=== PATIENT | female | born 1945 | race Caucasian/White ===

== ENCOUNTER → 2017-01-01 | Outpatient (CLI) | payer MEDICARE, BC ==
[~2017-01-01] MED LIST: ADVAIR DISKUS 11 DSK IH; ATROVENTNS0.03% NS; BUPROPION HCL150 M2 PO; CALCIUM600 M1 PO; CEFTIN500 MG PO; CENTRUM SILVER1 TA1 PO; COMBIRESP IH; COMBIVENT INH14.7 GM IH; DARVOCET N; DESYREL 50MG50 MG PO; DIOVAN 160MG160 MG PO; EPA FISH OIL1000 MG PO; FLEXERIL 1010 MG/TAB PO; GLUCOPHAGE1000 MG PO; GLUCOTROL XL10 MG PO; LABETALOL; LABETALOL200 MG PO; LEVOTHROID0.1 MG PO; LEVOTHYROXIN0.175 MG PO; LINSEED OIL 1 ML1 ML; LOPRESSOR 550 MG/TAB PO; LUTEIN20 M1; MOTRIN 200200 MG/TAB PO; MOVE FREE; MULTI VITAMINS1 TAB PO; NEURONTIN100 MG/CAP PO; NEURONTIN300 MG/CAP PO; NORCO 325 MG-51 TAB PO; NORCO 325 MG-7.1 TAB PO; OMEGA-3 FISH1000 MG PO; PROAIR HFA0.09 MG/AC IH; PROBIOTIC-MAJOR PO; PROVENTIL0.09 MG/A1 IH; REQUIP 1MG T1 MG/TAB PO; REQUIP1 MG PO; ROXICODONE 55 MG/TAB PO; TIROSINT125 MC1 PO; ULTRAM 50MG TAB50 MG PO; VICODIN 5/5001 UDTAB PO; VITAMIN C500 MG PO; VITAMIN D2000 I1 PO; WELLBUTRIN SR150 M1 PO; ZANAFLEX 4MG TAB4 MG PO
== END ==
LOC: MC.RAD 10:42
DX: Z12.31 Encounter for screening mammogram for malignant neoplasm of breast (principal)

== ENCOUNTER → 2017-08-30 | Outpatient (CLI) | payer MEDICARE, BC | LOC: COL.RAD 07:48 | DX: R11.0 Nausea (principal) | CPT/HCPCS: A9541 ==

== ENCOUNTER → 2018-02-22 | Outpatient (CLI) | payer MEDICARE, BC | LOC: MC.RAD 07:48 | DX: Z12.31 Encounter for screening mammogram for malignant neoplasm of breast (principal) ==

== ENCOUNTER 2018-03-28 12:01 | Emergency (ER) | payer MEDICARE, BC ==
[~2018-03-28] VITALS: Ht 154.9 cm; Wt 94.5 kg
[2018-03-28 12:03] VITALS: TEMP 97.2
[2018-03-28] MEDS ORDERED: PHENERGAN W/CO120 M1 PO (12:25)
[2018-03-28] MEDS ORDERED: ZOFRAN ODT4 MG PO (12:26)
[2018-03-28] MEDS ORDERED: PRILOSEC 20MG20 MG PO (12:27)
[2018-03-28] MEDS ORDERED: NYSTATIN POWDER30 GM TOP (12:27)
[2018-03-28] MEDS ORDERED: ASTELIN NASAL S34 ML NS (12:30)
[2018-03-28 12:33] LABS: BASO # 0.1 (0.0-0.2); BASO % 0.7 % (0.0-2.0); EOS # 0.2 (0.0-0.7); EOS % 3.3 % (0-4.0); GRAN # 4.3 (1.4-6.5); GRAN % 61.7 % (42.2-75.2); HEMATOCRIT 39.6 % (37.0-47.0); HEMOGLOBIN 13.4 g/dl (12.5-16.0); LYMPH # 1.7 (1.2-3.4); LYMPH % 24.5 % (20.0-51.0); MEAN CELL VOLUME 95 fl (80.0-100.0); MEAN CORPUSCULAR HEMOGLOBIN 32 pg (27.0-31.0); MEAN CORPUSCULAR HGB CONC 34 g/dl (33.0-37.0); MEAN PLATELET VOLUME 10.8 fl (7.4-10.4); MONO # 0.7 (0.1-0.6); MONO % 9.5 % (1.7-9.3); PLATELET COUNT 176 K/mm3 (130-400); RED BLOOD COUNT 4.17 M/mm3 (4.10-5.30); REDCELL DISTRIBUTION WIDTH-CV 13.2 % (11.5-14.5)
[2018-03-28 12:43] LABS: PROTHROMBIN TIME 11.4 SECONDS (9.7-12.8)
[2018-03-28 12:46] LABS: ALANINE AMINOTRANSFERASE 35 U/L (9-52); ALBUMIN 3.9 gm/dL (3.5-5.0); ALKALINE PHOSPHATASE 62 U/L (50-136); ANION GAP 12 mmol/L (7-16); AST,SGOT 38 U/L (15-37); BILIRUBIN,TOTAL 0.6 mg/dL (0.0-1.0); BLOOD UREA NITROGEN 15 mg/dL (7-17); CALCIUM 9.7 mg/dL (8.4-10.2); CARBON DIOXIDE 26 mmol/L (22-30); CHLORIDE 101 mmol/L (98-107); CREATININE, serum 0.81 mg/dL (0.52-1.25); GLUCOSE 83 mg/dL (74-106); POTASSIUM 4.8 mmol/L (3.4-5.0); SODIUM 138 mmol/L (137-145); TOTAL PROTEIN 7.4 gm/dL (6.4-8.2)
[2018-03-28 12:55] LABS: C-REACTIVE PROTEIN < 0.5 mg/dL (0.0-0.9)
[2018-03-28 13:01] LABS: TROPONIN-I < 0.012 ng/mL (0.000-0.034)
[2018-03-28 15:15] VITALS: BP 128/59; PULSE 70
== END 2018-03-28 15:47 | disposition home or self-care (01) ==
LOC: COL.ER 12:01
PROVIDERS: Emergency Medicine
DX: K21.9 Gastro-esophageal reflux disease without esophagitis (principal); I10 Essential (primary) hypertension; E11.9 Type 2 diabetes mellitus without complications; J44.9 Chronic obstructive pulmonary disease, unspecified; Z87.11 Personal history of peptic ulcer disease; Z90.49 Acquired absence of other specified parts of digestive tract; Z98.890 Other specified postprocedural states; Z87.891 Personal history of nicotine dependence; Z79.84 Long term (current) use of oral hypoglycemic drugs
CPT/HCPCS: J2765

== ENCOUNTER 2018-05-23 15:12 | Emergency (ER) | payer MEDICARE, BC ==
[~2018-05-23] VITALS: Ht 154.9 cm; Wt 94.1 kg
[~2018-05-23 15:12] MED LIST changes: +ASTELIN NASAL S34 ML NS; +NYSTATIN POWDER30 GM TOP; +PHENERGAN W/CO120 M1 PO; +PRILOSEC 20MG20 MG PO; +ZOFRAN ODT4 MG PO
[2018-05-23 15:14] VITALS: BP 180/82; TEMP 97.6
[2018-05-23 16:58] VITALS: PULSE 86
== END 2018-05-23 16:59 | disposition home or self-care (01) ==
LOC: COL.ER 15:12
DX: S52.502A Unspecified fracture of the lower end of left radius, initial encounter for closed fracture (principal); E03.9 Hypothyroidism, unspecified; E11.9 Type 2 diabetes mellitus without complications; I10 Essential (primary) hypertension; Z90.49 Acquired absence of other specified parts of digestive tract; Z98.890 Other specified postprocedural states; Z98.51 Tubal ligation status; Z87.891 Personal history of nicotine dependence; W01.0XXA Fall on same level from slipping, tripping and stumbling without subsequent striking against object, initial encounter; Y92.009 Unspecified place in unspecified non-institutional (private) residence as the place of occurrence of the external cause
CPT/HCPCS: Q4050

== ENCOUNTER → 2019-04-04 | Outpatient (CLI) | payer MEDICARE, BC | LOC: MC.RAD 09:45 | DX: Z12.31 Encounter for screening mammogram for malignant neoplasm of breast (principal); E11.9 Type 2 diabetes mellitus without complications ==

== ENCOUNTER 2019-05-15 14:25 | Emergency (ER) | payer MEDICARE, BC ==
[~2019-05-15] VITALS: Ht 154.9 cm; Wt 95.5 kg
[2019-05-15 14:30] VITALS: TEMP 97.5
[2019-05-15 16:00] LABS: BASO % 0.5 % (0.0-2.0); EOS # 0.3 (0.0-0.7); EOS % 3.7 % (0-4.0); GRAN # 5.3 (1.4-6.5); GRAN % 69.4 % (42.2-75.2); HEMATOCRIT 40.3 % (37.0-47.0); LYMPH # 1.5 (1.2-3.4); LYMPH % 19.7 % (20.0-51.0); MEAN CELL VOLUME 100 fl (80.0-100.0); MEAN CORPUSCULAR HEMOGLOBIN 32 pg (27.0-31.0); MEAN CORPUSCULAR HGB CONC 32 g/dl (33.0-37.0); MEAN PLATELET VOLUME 11.1 fl (7.4-10.4); MONO # 0.5 (0.1-0.6); MONO % 6.4 % (1.7-9.3); PLATELET COUNT 173 K/mm3 (130-400); RED BLOOD COUNT 4.05 M/mm3 (4.10-5.30); REDCELL DISTRIBUTION WIDTH-CV 13.2 % (11.5-14.5)
[2019-05-15 16:12] LABS: BILIRUBIN,TOTAL 0.5 mg/dL (0.0-1.0); C-REACTIVE PROTEIN 0.6 mg/dL (0.0-0.9); CALCIUM 9.6 mg/dL (8.4-10.2); POTASSIUM 4.7 mmol/L (3.4-5.0); TOTAL PROTEIN 7.5 gm/dL (6.4-8.2)
[2019-05-15] MEDS ORDERED: NORVASC 5MG5 MG/TAB PO (18:13)
[2019-05-15 19:06] VITALS: BP 134/72; PULSE 88
== END 2019-05-15 19:06 | disposition home or self-care (01) ==
LOC: COL.ER 14:25
PROVIDERS: Emergency Medicine
DX: T50.905A Adverse effect of unspecified drugs, medicaments and biological substances, initial encounter (principal); R05 Cough; I10 Essential (primary) hypertension; E11.9 Type 2 diabetes mellitus without complications; J44.9 Chronic obstructive pulmonary disease, unspecified; F17.210 Nicotine dependence, cigarettes, uncomplicated; Z98.51 Tubal ligation status; Z90.49 Acquired absence of other specified parts of digestive tract; K21.9 Gastro-esophageal reflux disease without esophagitis; Z79.84 Long term (current) use of oral hypoglycemic drugs
CPT/HCPCS: J1200; J2930; J7030; Q9967

== ENCOUNTER → 2019-07-21 | Outpatient (CLI) | payer MEDICARE, BC ==
[~2019-07-21] MED LIST changes: +NORVASC 5MG5 MG/TAB PO
== END ==
LOC: COL.RAD 07-09 09:45
DX: M48.07 Spinal stenosis, lumbosacral region (principal); M48.04 Spinal stenosis, thoracic region; M51.36 Other intervertebral disc degeneration, lumbar region

== ENCOUNTER 2019-07-25 09:21 | Emergency (ER) | payer MEDICARE, BC ==
[~2019-07-25] VITALS: Ht 154.9 cm; Wt 94.5 kg
[2019-07-25 09:45] VITALS: TEMP 97.5
[2019-07-25 10:34] LABS: ALANINE AMINOTRANSFERASE 44 U/L (9-52); ALBUMIN 4.7 gm/dL (3.5-5.0); ALKALINE PHOSPHATASE 52 U/L (50-136); ANION GAP 8 mmol/L (7-16); AST,SGOT 49 U/L (15-37); BILIRUBIN,TOTAL 0.7 mg/dL (0.0-1.0); BLOOD UREA NITROGEN 18 mg/dL (7-17); CALCIUM 9.8 mg/dL (8.4-10.2); CARBON DIOXIDE 30 mmol/L (22-30); CHLORIDE 102 mmol/L (98-107); CREATININE, serum 0.84 (0.52-1.25); GLUCOSE 127 mg/dL (74-106); LIPASE 67 U/L (23-300); SODIUM 140 mmol/L (137-145); TOTAL PROTEIN 8.3 gm/dL (6.4-8.2)
[2019-07-25 10:35] LABS: BASO % 0.8 % (0.0-2.0); EOS # 0.1 (0.0-0.7); EOS % 2.6 % (0-4.0); GRAN # 3.7 (1.4-6.5); GRAN % 72.4 % (42.2-75.2); HEMATOCRIT 41.6 % (37.0-47.0); HEMOGLOBIN 13.8 g/dl (12.5-16.0); LYMPH # 0.8 (1.2-3.4); LYMPH % 16.7 % (20.0-51.0); MEAN CELL VOLUME 97 fl (80.0-100.0); MEAN CORPUSCULAR HEMOGLOBIN 32 pg (27.0-31.0); MEAN CORPUSCULAR HGB CONC 33 g/dl (33.0-37.0); MEAN PLATELET VOLUME 11.7 fl (7.4-10.4); MONO # 0.4 (0.1-0.6); MONO % 7.1 % (1.7-9.3); PLATELET COUNT 138 K/mm3 (130-400); RED BLOOD COUNT 4.28 M/mm3 (4.10-5.30); REDCELL DISTRIBUTION WIDTH-CV 13.1 % (11.5-14.5)
[2019-07-25 10:37] LABS: C-REACTIVE PROTEIN < 0.5 mg/dL (0.0-0.9)
[2019-07-25] MEDS ORDERED: BONINE25 MG PO (12:05)
[2019-07-25 12:10] LABS: COLLECTION METHOD CLEAN CATCH
[2019-07-25 12:15] LABS: PH 7 (5-8); SQUAMOUS EPITHELIAL 0-2 /hpf; URINE APPEARANCE Clear; URINE BACTERIA None Seen /hpf; URINE BILIRUBIN Negative (NEGATIVE); URINE BLOOD Negative (NEGATIVE); URINE COLOR Yellow; URINE GLUCOSE Negative (NEGATIVE); URINE KETONE Negative (NEGATIVE); URINE LEUKOCYTE ESTERASE Trace (NEGATIVE); URINE NITRATE Negative (NEGATIVE); URINE PROTEIN(semi-quant) Negative (NEGATIVE); URINE RBC 0-2 /hpf
[2019-07-25 12:46] VITALS: BP 147/78; PULSE 78
== END 2019-07-25 12:55 | disposition home or self-care (01) ==
LOC: COL.ER 09:21
PROVIDERS: Family Medicine
DX: H83.01 Labyrinthitis, right ear (principal); E11.9 Type 2 diabetes mellitus without complications; I10 Essential (primary) hypertension
CPT/HCPCS: J2405; J7030; J7040

== ENCOUNTER 2019-09-16 06:58 | Day surgery (SDC) | payer MEDICARE, BC ==
[~2019-09-16] VITALS: Ht 154.9 cm; Wt 97.4 kg
[~2019-09-16 06:58] MED LIST changes: +BONINE25 MG PO
[2019-09-16] MEDS ORDERED: WELLBUTRIN SR150 M1 PO (07:48)
[2019-09-16] MEDS ORDERED: MEGA MULTIVITAM1 TAB PO (07:53)
[2019-09-16] MEDS ORDERED: MULTIPLE VITAMI1 CAP PO (07:55)
[2019-09-16] MEDS ORDERED: LUTEIN20 M1 PO (07:56)
[2019-09-16] MEDS ORDERED: ASPIRIN 81M81 MG/TA2 PO (07:57)
[2019-09-16 08:55] VITALS: BP 135/70; PULSE 70; TEMP 97
--- NOTE | 2019-09-16 08:55 | NUR ---
Pt to [facility] [address] Pt drowsy, but awake. Pt ambulates to recliner with stand by assitance x2. Family in room. Pt denies pain or nausea. Muffin, coffee, and juice provided. Will continue to monitor. Call light within reach.
[2019-09-16 09:09] VITALS: BP 143/90; PULSE 64; TEMP 96.4
[2019-09-16 09:10] VITALS: BP 117/79; PULSE 71
--- NOTE | 2019-09-16 09:10 | NUR ---
Pt tolerating food and fluids without difficulties. Denies needs. Call light within reach.
[2019-09-16 09:25] VITALS: BP 135/78; PULSE 68
--- NOTE | 2019-09-16 09:25 | NUR ---
into see pt and family. Call light within reach.
--- NOTE | 2019-09-16 09:40 | NUR ---
Discharge instructions reviewed. Pt voices understanding. IV site discontinued with all parts intact. Pt up to dress. Call light within reach.
--- NOTE | 2019-09-16 09:50 | NUR ---
Pt escorted to private car via wheel chair. Pt accompanied home by her and son.
== END 2019-09-16 09:50 | disposition home or self-care (01) ==
LOC: SDCO 06:58
DX: K29.30 Chronic superficial gastritis without bleeding (principal); K31.89 Other diseases of stomach and duodenum; E03.9 Hypothyroidism, unspecified; G25.81 Restless legs syndrome; I10 Essential (primary) hypertension; E11.9 Type 2 diabetes mellitus without complications; G89.29 Other chronic pain; M54.5 Low back pain; E66.9 Obesity, unspecified; K58.8 Other irritable bowel syndrome; I25.10 Atherosclerotic heart disease of native coronary artery without angina pectoris; I35.8 Other nonrheumatic aortic valve disorders; J44.9 Chronic obstructive pulmonary disease, unspecified; G47.33 Obstructive sleep apnea (adult) (pediatric); K21.9 Gastro-esophageal reflux disease without esophagitis; M19.90 Unspecified osteoarthritis, unspecified site; F32.9 Major depressive disorder, single episode, unspecified; F41.9 Anxiety disorder, unspecified; Z90.49 Acquired absence of other specified parts of digestive tract; Z79.84 Long term (current) use of oral hypoglycemic drugs; Z96.659 Presence of unspecified artificial knee joint; Z87.891 Personal history of nicotine dependence; Z86.718 Personal history of other venous thrombosis and embolism
CPT/HCPCS: J2704; J7030

== ENCOUNTER → 2020-05-13 | Outpatient (CLI) | payer MEDICARE, BC ==
[~2020-05-13] MED LIST changes: +ASPIRIN 81M81 MG/TA2 PO; +LUTEIN20 M1 PO; +MEGA MULTIVITAM1 TAB PO; +MULTIPLE VITAMI1 CAP PO
== END ==
LOC: MC.RAD 10:59
DX: Z12.31 Encounter for screening mammogram for malignant neoplasm of breast (principal)

== ENCOUNTER 2020-08-07 10:30 | Emergency (ER) | payer MEDICARE, BC ==
[~2020-08-07] VITALS: Ht 152.4 cm; Wt 90.0 kg
[2020-08-07 10:44] VITALS: TEMP 97.4
[2020-08-07 11:23] LABS: BASO % 0.5 % (0.0-2.0); EOS # 0.2 (0.0-0.7); EOS % 2.7 % (0-4.0); GRAN # 5.9 (1.4-6.5); GRAN % 71.3 % (42.2-75.2); HEMATOCRIT 38.4 % (37.0-47.0); HEMOGLOBIN 12.7 g/dl (12.5-16.0); LYMPH # 1.6 (1.2-3.4); LYMPH % 18.7 % (20.0-51.0); MEAN CELL VOLUME 94 fl (80.0-100.0); MEAN CORPUSCULAR HEMOGLOBIN 31 pg (27.0-31.0); MEAN CORPUSCULAR HGB CONC 33 g/dl (33.0-37.0); MEAN PLATELET VOLUME 12.5 fl (7.4-10.4); MONO # 0.5 (0.1-0.6); MONO % 6.4 % (1.7-9.3); PLATELET COUNT 158 K/mm3 (130-400); RED BLOOD COUNT 4.07 M/mm3 (4.10-5.30); REDCELL DISTRIBUTION WIDTH-CV 13.4 % (11.5-14.5)
[2020-08-07 11:41] LABS: ALANINE AMINOTRANSFERASE 25 U/L (4-34); ALBUMIN 4.4 gm/dL (3.5-5.0); ALKALINE PHOSPHATASE 61 U/L (50-136); ANION GAP 9 mmol/L (7-16); AST,SGOT 37 U/L (15-37); BILIRUBIN,TOTAL 0.7 mg/dL (0.0-1.0); BLOOD UREA NITROGEN 18 mg/dL (7-17); CALCIUM 9.6 mg/dL (8.4-10.2); CARBON DIOXIDE 27 mmol/L (22-30); CHLORIDE 105 mmol/L (98-107); GLUCOSE 171 mg/dL (74-106); LIPASE 104 U/L (23-300); POTASSIUM 3.9 mmol/L (3.4-5.0); SODIUM 141 mmol/L (137-145); TOTAL PROTEIN 7.7 gm/dL (6.4-8.2)
[2020-08-07 11:49] LABS: C-REACTIVE PROTEIN < 0.5 mg/dL (0.0-0.9); TROPONIN-I < 0.012 ng/mL (0.000-0.035)
[2020-08-07] MEDS ORDERED: ZOFRAN ODT8 MG PO (13:24)
[2020-08-07 13:30] LABS: COLLECTION METHOD CLEAN CATCH
[2020-08-07 13:39] LABS: PH 6 (5-8); SQUAMOUS EPITHELIAL 0-2 /hpf; URINE APPEARANCE Clear; URINE BACTERIA None Seen /hpf; URINE BILIRUBIN Negative (NEGATIVE); URINE BLOOD Negative (NEGATIVE); URINE COLOR Straw; URINE GLUCOSE Negative (NEGATIVE); URINE KETONE Negative (NEGATIVE); URINE LEUKOCYTE ESTERASE Negative (NEGATIVE); URINE NITRATE Negative (NEGATIVE); URINE PROTEIN(semi-quant) Negative (NEGATIVE); URINE RBC 0-2 /hpf; URINE UROBILINOGEN Negative (NEGATIVE)
[2020-08-07 14:16] VITALS: BP 100/64; PULSE 78
== END 2020-08-07 14:16 | disposition home or self-care (01) ==
LOC: COL.ER 10:30
PROVIDERS: Emergency Medicine
DX: R11.2 Nausea with vomiting, unspecified (principal); I10 Essential (primary) hypertension; E11.9 Type 2 diabetes mellitus without complications; E03.9 Hypothyroidism, unspecified; G89.29 Other chronic pain; Z90.49 Acquired absence of other specified parts of digestive tract; Z88.1 Allergy status to other antibiotic agents; Z79.890 Hormone replacement therapy; Z79.82 Long term (current) use of aspirin; Z79.84 Long term (current) use of oral hypoglycemic drugs
CPT/HCPCS: C9113; J2270; J2405; J2765; J7030

== ENCOUNTER → 2020-12-08 | Outpatient (CLI) | payer MEDICARE, BC ==
[~2020-12-08] MED LIST changes: +REGLAN 10MG10 MG/TAB PO; +ZOFRAN ODT8 MG PO
== END ==
LOC: COL.RAD 08:00
DX: R11.2 Nausea with vomiting, unspecified (principal)
CPT/HCPCS: A9541

== ENCOUNTER 2021-01-15 13:09 | Emergency (ER) | payer MEDICARE, BC ==
[~2021-01-15] VITALS: Ht 154.9 cm; Wt 82.3 kg
[2021-01-15 13:18] VITALS: TEMP 96.5
[2021-01-15 15:25] LABS: COLLECTION METHOD CLEAN CATCH
[2021-01-15 15:30] LABS: BASO # 0.1 (0.0-0.2); BASO % 0.7 % (0.0-2.0); EOS # 0.1 (0.0-0.7); EOS % 1.1 % (0-4.0); GRAN % 79.5 % (42.2-75.2); HEMATOCRIT 43.2 % (37.0-47.0); LYMPH % 13.7 % (20.0-51.0); MEAN CELL VOLUME 97 fl (80.0-100.0); MEAN CORPUSCULAR HEMOGLOBIN 32 pg (27.0-31.0); MEAN CORPUSCULAR HGB CONC 32 g/dl (33.0-37.0); MEAN PLATELET VOLUME 11.7 fl (7.4-10.4); MONO # 0.4 (0.1-0.6); MONO % 4.7 % (1.7-9.3); PLATELET COUNT 179 K/mm3 (130-400); RED BLOOD COUNT 4.45 M/mm3 (4.10-5.30); REDCELL DISTRIBUTION WIDTH-CV 12.8 % (11.5-14.5)
[2021-01-15 15:33] LABS: PH 5 (5-8); SQUAMOUS EPITHELIAL 0-2 /hpf; URINE APPEARANCE Clear; URINE BACTERIA None Seen /hpf; URINE BILIRUBIN Negative (NEGATIVE); URINE BLOOD Negative (NEGATIVE); URINE COLOR Yellow; URINE GLUCOSE Negative (NEGATIVE); URINE KETONE Negative (NEGATIVE); URINE LEUKOCYTE ESTERASE Negative (NEGATIVE); URINE NITRATE Negative (NEGATIVE); URINE PROTEIN(semi-quant) Negative (NEGATIVE); URINE RBC 0-2 /hpf; URINE UROBILINOGEN Negative (NEGATIVE); URINE WBC 0-2 /hpf
[2021-01-15 15:45] LABS: ALANINE AMINOTRANSFERASE 20 U/L (4-34); ALBUMIN 4.8 gm/dL (3.5-5.0); ALKALINE PHOSPHATASE 62 U/L (50-136); ANION GAP 10 mmol/L (7-16); AST,SGOT 34 U/L (15-37); BILIRUBIN,TOTAL 0.8 mg/dL (0.0-1.0); BLOOD UREA NITROGEN 22 mg/dL (7-17); CALCIUM 10.1 mg/dL (8.4-10.2); CARBON DIOXIDE 29 mmol/L (22-30); CHLORIDE 101 mmol/L (98-107); CREATININE, serum 0.88 (0.52-1.25); GLUCOSE 128 mg/dL (74-106); LIPASE 127 U/L (23-300); POTASSIUM 4.1 mmol/L (3.4-5.0); SODIUM 141 mmol/L (137-145); TOTAL PROTEIN 8.3 gm/dL (6.4-8.2)
[2021-01-15 15:57] LABS: TROPONIN-I < 0.012 ng/mL (0.000-0.035)
[2021-01-15 17:09] VITALS: BP 134/57; PULSE 87
== END 2021-01-15 17:12 | disposition home or self-care (01) ==
LOC: COL.ER 13:09
PROVIDERS: Emergency Medicine
DX: R11.2 Nausea with vomiting, unspecified (principal); E03.9 Hypothyroidism, unspecified; I10 Essential (primary) hypertension; E11.9 Type 2 diabetes mellitus without complications; I25.10 Atherosclerotic heart disease of native coronary artery without angina pectoris; Z88.1 Allergy status to other antibiotic agents; Z79.890 Hormone replacement therapy; Z79.84 Long term (current) use of oral hypoglycemic drugs; Z79.82 Long term (current) use of aspirin; Z90.49 Acquired absence of other specified parts of digestive tract

== ENCOUNTER → 2021-05-30 | Outpatient (CLI) | payer MEDICARE, BC | LOC: MC.RAD 08:00 | DX: R92.8 Other abnormal and inconclusive findings on diagnostic imaging of breast (principal) ==

== ENCOUNTER 2021-08-29 19:02 | Emergency (ER) | payer MEDICARE, BC ==
[~2021-08-29] VITALS: Ht 154.9 cm; Wt 86.4 kg
[2021-08-29 19:14] VITALS: TEMP 98.2
[2021-08-30 00:52] VITALS: BP 134/78; PULSE 77
== END 2021-08-30 00:52 | disposition home or self-care (01) ==
LOC: COL.ER 19:02
DX: S00.83XA Contusion of other part of head, initial encounter (principal); R11.2 Nausea with vomiting, unspecified; E03.9 Hypothyroidism, unspecified; I10 Essential (primary) hypertension; E11.9 Type 2 diabetes mellitus without complications; I25.10 Atherosclerotic heart disease of native coronary artery without angina pectoris; Z79.899 Other long term (current) drug therapy; Z79.84 Long term (current) use of oral hypoglycemic drugs; Z79.890 Hormone replacement therapy; Z79.82 Long term (current) use of aspirin; W18.09XA Striking against other object with subsequent fall, initial encounter; Y92.009 Unspecified place in unspecified non-institutional (private) residence as the place of occurrence of the external cause

== ENCOUNTER → 2021-12-01 | Outpatient (CLI) | payer MEDICARE, BC | LOC: MC.RAD 10:28 | DX: R92.8 Other abnormal and inconclusive findings on diagnostic imaging of breast (principal) ==

== ENCOUNTER → 2021-12-07 | Outpatient (CLI) | payer MEDICARE, BC | LOC: MC.RAD 07:00 | DX: N63.11 Unspecified lump in the right breast, upper outer quadrant (principal) ==

== ENCOUNTER 2022-01-05 06:31 | Day surgery (SDC) | payer MEDICARE, BC ==
[~2022-01-05] VITALS: Ht 154.9 cm; Wt 91.0 kg
[~2022-01-05 06:31] MED LIST changes: -MULTIPLE VITAMI1 CAP PO; +MULTIPLE VITAMI1 TA5 PO
[2022-01-05 07:25] VITALS: BP 148/74; PULSE 77; TEMP 98.4
--- NOTE | 2022-01-05 09:02 | NUR ---
Initial visit; Patient thanked [employer] Operator for offering prayer and God's blessings prior to her surgical procedure.
[2022-01-05 09:35] VITALS: BP 113/66; PULSE 77; TEMP 98.7
--- NOTE | 2022-01-05 09:35 | NUR ---
RECEIVED PT FROM OR. RECEIVED REPORT FROM [facility] [employer]. PT DENIES ANY PAIN OR DISCOMFORT AT THIS TIME. REORIENTED PT TO ROOM AND CALL LIGHT. VS OBTAINED. WILL CONTINUE TO MONITOR PT.
[2022-01-05] MEDS ORDERED: NORCO 325 MG-51 TAB PO (09:38)
[2022-01-05 09:50] VITALS: BP 99/78; PULSE 75
--- NOTE | 2022-01-05 09:50 | NUR ---
VSS. PT CONTINUES TO REST COMFORTABLY. DENIES ANY PAIN OR DISCOMFORT. WILL CONTINUE TO MONITOR PT.
[2022-01-05 10:05] VITALS: BP 124/58; PULSE 72
--- NOTE | 2022-01-05 10:05 | NUR ---
PT CONTINUES TO DENY ANY PAIN OR DISCOMFORT. VSS. PT TOLERATING HOT CHOCOLATE AND TOAST. WILL CONTINUE TO MONITOR PT.
[2022-01-05 10:20] VITALS: BP 121/65; PULSE 96
--- NOTE | 2022-01-05 10:20 | NUR ---
VSS. PT STATES SHE IS READY FOR DISCHARGE. CONTINUES TO DENY ANY PAIN OR DISCOMFORT. WILL PREPARE PT FOR DISCHARGE.
--- NOTE | 2022-01-05 10:25 | NUR ---
IV DC. PT TOLERATED WELL.
--- NOTE | 2022-01-05 10:30 | NUR ---
DISCHARGE EDUCATION COMPLETED WITH PT. PT VERBALIZED UNDERSTANDING OF HOME AND FOLLOW UP CARE. ALL QUESTIONS ANSWERED. DISCHARGE PAPERWORK GIVEN TO PT.
--- NOTE | 2022-01-05 10:40 | NUR ---
PT OFF UNIT PER WC AND DISCHARGE HOME PER PERSONAL VEHICLE WITH .
== END 2022-01-05 10:40 | disposition home or self-care (01) ==
LOC: SDCO 06:31
DX: C50.411 Malignant neoplasm of upper-outer quadrant of right female breast (principal); F17.210 Nicotine dependence, cigarettes, uncomplicated; Z17.0 Estrogen receptor positive status [ER+]
CPT/HCPCS: A4648; J0690; J2405; J2704; J3010; J7120

== ENCOUNTER → 2023-02-01 | Outpatient (CLI) | payer MEDICARE | LOC: MC.RAD 07:25 | DX: R92.8 Other abnormal and inconclusive findings on diagnostic imaging of breast (principal) ==

== ENCOUNTER → 2024-02-04 | Outpatient (CLI) | payer MEDICARE | LOC: MC.RAD 10:51 | DX: C50.412 Malignant neoplasm of upper-outer quadrant of left female breast (principal) ==